=== PATIENT | male | born 1985 | race African-American/Black ===

== ENCOUNTER 2017-02-11 13:06 | Emergency (ER) | payer OTHER ==
[2017-02-11 13:11] VITALS: BP 102/70; PULSE 61; TEMP 98.7; BMI 25.2
[2017-02-11] MEDS ORDERED: IBUPROFEN 400 MG TABLET (FP) PO ONE ×2 (14:04)
--- NOTE | 2017-02-11 14:08 | PDOC ---
History of Present Illness - General Chief Complaint: Sore Throat Stated Complaint: THROAT PAIN Time Seen by Provider: 02/11/17 13:17 History Source: Patient - History of Present Illness Timing/Duration: reports: other Severity: reports: severe Associated Symptoms: reports: sore throat. denies: cough, earache, fever/chills , nasal congestion, nasal drainage Past History - Past Medical History Allergies/Adverse Reactions: Allergies Allergy/AdvReac Type Severity Reaction Status Date / Time No Known Allergies Allergy Verified 02/11/17 13:11 - Psycho/Social/Smoking Cessation Hx Suicidal Ideation: No Smoking History: Current every day smoker Number of Cigarettes Smoked Daily: 2 Information on smoking cessation initiated: No Review of Systems - Review of Systems Constitutional: No: Chills, Fever HEENTM: Yes: Throat Pain. No: Ear Pain Respiratory: No: Cough *Physical Exam - Vital Signs Last Vital Signs Temp Pulse Resp BP Pulse Ox 98.7 F 61 18 102/70 99 02/11/17 13:07 02/11/17 13:07 02/11/17 13:07 02/11/17 13:07 02/11/17 13:07 - Physical Exam General Appearance: Yes: Appropriately Dressed. No: Apparent Distress HEENT: positive: Normal Voice, TMs Normal, Other (R tonsillar enlargement, no exudates no uvular deviation). negative: Scleral Icterus (R), Scleral Icterus ( L) Neck: positive: Supple, Lymphadenopathy (R). negative: Lymphadenopathy (L) Respiratory/Chest: negative: Respiratory Distress Integumentary: positive: Dry, Warm Neurologic: positive: Fully Oriented, Alert, Normal Mood/Affect Medical Decision Making - Medical Decision Making 02/11/17 14:05 31-year-old male currently smokes, here with sore throat. Most on the right with dysphagia times several days. No ear pain, cough, fever or chills. No sick contacts. See exam Pharyngitis M/l viral, r/o strep -pain control 02/11/17 14:54 Rapid strep neg. Pt improved w/ motrin. Stable for dc *DC/Admit/Observation/Transfer Diagnosis at time of Disposition: Pharyngitis Qualifiers: Pharyngitis/tonsillitis etiology: unspecified etiology Qualified Code(s): J02.9 - Acute pharyngitis, unspecified - Discharge Dispostion Disposition: HOME Condition at time of disposition: Good - Patient Instructions Printed Discharge Instructions: DI for Viral Pharyngitis Additional Instructions: Your rapid strep test was negative. You most likely have a viral infection. Take Motrin as needed for pain until symptoms resolve
== END 2017-02-11 14:54 | disposition home or self-care (01) ==
LOC: JERFT 13:06
DX: J02.9 Acute pharyngitis, unspecified (principal)
CPT/HCPCS: 87070; 87430; 99281-25

== ENCOUNTER 2017-03-11 12:03 | Emergency (ER) | payer OTHER ==
[2017-03-11 12:14] VITALS: BP 112/60; PULSE 54; TEMP 97.9; BMI 25.2
--- NOTE | 2017-03-11 13:04 | PDOC ---
History of Present Illness - General Chief Complaint: Injury Stated Complaint: RT ANKLE PAIN Time Seen by Provider: 03/11/17 12:23 History Source: Patient Exam Limitations: No Limitations - History of Present Illness Initial Comments: 03/11/17 13:07 CHIEF COMPLAINT: Right lateral ankle injury HISTORY OF PRESENT ILLNESS:Patient is an otherwise healthy, 31 y/o make who is at his right ankle yesterday while playing basketball, inversion injury. Unable to bear weight on right ankle. Occurred: reports: yesterday Severity: Yes: moderate Lower Extremity Pain Location: right: ankle Method of Injury: Yes: twisted Modifying Factors: improves with: None Lower Ext. Injury Location - Specific Injury Location Ankle: right pain, right swelling Extremity Pain Location - Extremity Pain Location Extremity Pain Locations: right: ankle Past History - Past Medical History Allergies/Adverse Reactions: Allergies Allergy/AdvReac Type Severity Reaction Status Date / Time No Known Allergies Allergy Verified 03/11/17 12:11 Home Medications: Ambulatory Orders Ibuprofen [Motrin -] 600 mg PO QID #28 tablet 03/11/17 Other medical history: DENIES. - Psycho/Social/Smoking Cessation Hx Suicidal Ideation: No Smoking History: Current every day smoker Have you smoked in the past 12 months: Yes Number of Cigarettes Smoked Daily: 2 Information on smoking cessation initiated: No Review of Systems - Review of Systems Constitutional: No: Symptoms Reported Cardiac (ROS): No: Symptoms Reported Musculoskeletal: Yes: Joint Pain, Joint Swelling Integumentary: Yes: Erythema. No: Bruising Neurological: No: Paresthesia, Tingling, Tremors All Other Systems: Reviewed and Negative *Physical Exam - Vital Signs Last Vital Signs Temp Pulse Resp BP Pulse Ox 97.9 F 54 L 19 112/60 98 03/11/17 12:11 03/11/17 12:11 03/11/17 12:11 03/11/17 12:11 03/11/17 12:11 - Physical Exam General Appearance: Yes: Appropriately Dressed. No: Apparent Distress Respiratory/Chest: positive: Lungs Clear, Normal Breath Sounds Cardiovascular: positive: Regular Rhythm Musculoskeletal: positive: Decreased Range of Motion. negative: Normal Inspection Extremity: positive: Swelling (right lateral ankle). negative: Pedal Edema, Calf Tenderness Integumentary: positive: Normal Color, Dry, Swelling. negative: Erythema, Ecchymosis, Bruising Neurologic: positive: Alert, Normal Mood/Affect, Normal Response, Motor Strength / ED Treatment Course - RADIOLOGY Radiology Studies Ordered: Category Date Time Status ANKLE & FOOT-RIGHT* [RAD] Stat Radiology 03/11/17 12:59 Ordered Medical Decision Making - Medical Decision Making 03/11/17 13:18 A/P: Patient with inversion injury to right ankle, sent to x-ray. 03/11/17 14:56 Wet read xray with no acute fracture or dislocation. Motrin 600 mg PO x 1 given. Daniel wrap , aircast, non weight bearing. Follow-up with orthopedics in one week if pain persists. *DC/Admit/Observation/Transfer Diagnosis at time of Disposition: Ankle sprain Qualifiers: Encounter type: initial encounter Involved ligament of ankle: tibiofibular ligament Laterality: right Qualified Code(s): S93.431A - Sprain of tibiofibular ligament of right ankle, initial encounter - Discharge Dispostion Disposition: HOME Condition at time of disposition: Good Admit: No - Prescriptions Prescriptions: Ibuprofen [Motrin -] 600 mg PO QID #28 tablet - Referrals Referrals: Clyde Lott MD [Staff Physician] - - Patient Instructions Printed Discharge Instructions: DI for Ankle Sprain Additional Instructions: 1. Please return to the emergency department with any redness, swelling, increased pain, or any other concerns. 2. Keep splint on until follow up. 3. Please follow up in the office of Dr. Lott within a week if pain persists. 4. No weightbearing 5. Ice and elevate when at rest. 6. Motrin for pain
[2017-03-11] MEDS ORDERED: IBUPROFEN 600 MG TABLET (FP) PO ONE ×2 (13:30→13:32)
== END 2017-03-11 15:25 | disposition home or self-care (01) ==
LOC: JERFT 12:03
PROC: 2W3LX1Z Immobilization of Right Lower Extremity using Splint (ICD-10-PCS; principal; 2017-03-11)
DX: S93.491A Sprain of other ligament of right ankle, initial encounter (principal); X50.1XXA Overexertion from prolonged static or awkward postures, initial encounter; Y93.67 Activity, basketball; Y92.310 Basketball court as the place of occurrence of the external cause; Y99.8 Other external cause status
CPT/HCPCS: 29515; 73610-TC-RT; 73630-TC-RT; 99281-25

== ENCOUNTER 2023-05-04 04:55 | Emergency (ER) | payer OTHER ==
[2023-05-04] MEDS ORDERED: FLUTICASONE PROP 0.05% 16 GM NASAL SPRAY NS ONE (05:19)
[2023-05-04 05:45] VITALS: BP 136/88; PULSE 57; RESP 18; TEMP 97.9; BMI 25.0
== END 2023-05-04 05:49 | disposition home or self-care (01) ==
LOC: JER 04:55
DX: R06.02 Shortness of breath (principal); R09.81 Nasal congestion; Z20.822 Contact with and (suspected) exposure to COVID-19
CPT/HCPCS: 0241U-QW; 99283-25